=== PATIENT | female | born 1970 | race Caucasian/White ===

== ENCOUNTER 2019-05-12 15:33 | Outpatient (CLI) | payer OTHER, SELFPAY ==
--- NOTE | 2019-05-12 15:41 | MM_ITS ---
WS: [id number] SCREENING DIGITAL MAMMOGRAM WITH CAD HISTORY: SCREENING COMPARISON: 02/05/2018 and 12/14/2016 Bilateral CC and MLO views submitted. Computer aided detection analyzed. Breast composition: There are scattered areas of fibroglandular density. Irregular asymmetry in the i nferior RIGHT breast on the MLO projection. No corresponding finding on the CC projection. LEFT breas t is negative. RIGHT breast: Spot compression views (MLO). True ML. Ultrasound to follow if abnormality persists. MM/[place] [id number] IMPRESSION: BI-RADS: 0-Incomplete: Need additional imaging evaluation FOLLOW UP: Need Additional Imaging
== END 2019-05-12 15:34 | disposition home or self-care (01) ==
LOC: RADSHAW 15:39
PROVIDERS: Family Provider Family Medicine; PCP Family Medicine; Visit Provider Family Medicine
DX: Z12.31 Encounter for screening mammogram for malignant neoplasm of breast (principal)
CPT/HCPCS: 77067

== ENCOUNTER 2019-06-09 08:18 | Outpatient (CLI) | payer OTHER, SELFPAY ==
--- NOTE | 2019-06-09 08:37 | MM_ITS ---
WS: [id number] ADDITIONAL VIEWS RIGHT BREAST RIGHT breast ultrasound, limited HISTORY: RT BREAST ASYMMETRY COMPARISON: 05/12/2019, 02/05/2018, 12/14/2016 and 12/10/2015 Compression views right MLO projection. True ML also submitted. Ill-defined asymmetry persists in the inferior RIGHT breast at a middle depth. Margins are slightly l ess spiculated than on the prior examination. This is probably superimposed fibroglandular tissue. No t definitely seen on the CC projection. No distortion. RIGHT breast ultrasound. Ultrasound is directed to the inferior RIGHT breast. No suspicious masses or shadowing is identified. FOLLOW-UP: 6 Month Follow-up Recommend 6 month follow-up RIGHT mammogram and possible ultrasound. Favor the asymmetry is normal fi broglandular tissue in the RIGHT breast. MM/[place] [id number] IMPRESSION: BI-RADS: 3-Probably Benign
--- NOTE | 2019-06-09 09:01 | US_ITS ---
WS: [id number] ADDITIONAL VIEWS RIGHT BREAST RIGHT breast ultrasound, limited HISTORY: RT BREAST ASYMMETRY COMPARISON: 05/12/2019, 02/05/2018, 12/14/2016 and 12/10/2015 Compression views right MLO projection. True ML also submitted. Ill-defined asymmetry persists in the inferior RIGHT breast at a middle depth. Margins are slightly l ess spiculated than on the prior examination. This is probably superimposed fibroglandular tissue. No t definitely seen on the CC projection. No distortion. RIGHT breast ultrasound. Ultrasound is directed to the inferior RIGHT breast. No suspicious masses or shadowing is identified. FOLLOW-UP: 6 Month Follow-up Recommend 6 month follow-up RIGHT mammogram and possible ultrasound. Favor the asymmetry is normal fi broglandular tissue in the RIGHT breast. US/US breast RT limited* [id number] IMPRESSION: BI-RADS: 3-Probably Benign
== END 2019-06-09 08:19 | disposition home or self-care (01) ==
LOC: RADSHAW 08:19
PROVIDERS: Family Provider Family Medicine; PCP Family Medicine; Visit Provider Family Medicine
DX: Z00.00 Encounter for general adult medical examination without abnormal findings (principal); Z12.31 Encounter for screening mammogram for malignant neoplasm of breast
CPT/HCPCS: 76642; 77065

== ENCOUNTER 2019-12-16 10:32 | Outpatient (CLI) | payer OTHER, SELFPAY ==
--- NOTE | 2019-12-16 10:51 | MM_ITS ---
WS: [id number] RIGHT DIGITAL MAMMOGRAPHY WITH CAD CLINICAL INFORMATION: 6 MO F/U RT BREAST ASYMMETRY COMPARISON: June 09, 2019 TECHNIQUE: 5 views of the right breast were obtained. FINDINGS: The right breast is composed of heterogeneous fibroglandular density tissue, which can limit the dete ction of small underlying mass lesions. Again seen is the ill-defined asymmetry in the inferior right breast mid depth. This is unchanged from previous. Ultrasound is pending. ULTRASOUND BREAST RIGHT TECHNIQUE: Ultrasound right breast focused area of concern. CLINICAL INFORMATION: 6 MO F/U RT BREAST ASYMMETRY FINDINGS: Ultrasound right breast 4:00-700 position. No evidence of pathologic mass or lesion. Normal underlyin g dense breast tissue. No lesions to target for biopsy. Findings are benign. MM/[place] [id number] IMPRESSION: BI-RADS: 2-Benign FOLLOW UP: 1 Year Follow-up Recommend return to annual screening mammography.
== END 2019-12-16 10:33 | disposition home or self-care (01) ==
LOC: RADSHAW 10:33
PROVIDERS: PCP Family Medicine; Visit Provider Family Medicine
DX: N64.89 Other specified disorders of breast (principal)
CPT/HCPCS: 76642; 77065

== ENCOUNTER 2021-03-09 08:13 | Outpatient (CLI) | payer OTHER, SELFPAY ==
--- NOTE | 2021-03-09 08:23 | MM_ITS ---
WS: [id number] BILATERAL SCREENING DIGITAL MAMMOGRAM WITH CAD HISTORY: SCREENING COMPARISON: 05/12/2019, 02/05/2018 and 12/14/2016 Bilateral CC and MLO views submitted. Computer aided detection analyzed. Breast composition: There are scattered areas of fibroglandular density. No suspicious masses, microc alcifications or architectural distortion. MM/[place] [id number] IMPRESSION: BI-RADS: 1-Negative FOLLOW UP: 1 Year Follow-up
== END 2021-03-09 08:14 | disposition home or self-care (01) ==
LOC: RADSHAW 08:14
PROVIDERS: PCP Family Medicine; Visit Provider Family Medicine
DX: Z12.31 Encounter for screening mammogram for malignant neoplasm of breast (principal)
CPT/HCPCS: 77067

== ENCOUNTER → 2022-04-03 12:44 | Outpatient (BNVA) | payer OTHER, SELFPAY | PROVIDERS: PCP Family Medicine; Visit Provider Nurse Practitioner Family | DX: R50.9 Fever, unspecified (principal); B34.9 Viral infection, unspecified | CPT/HCPCS: 87804; 87880 ==

== ENCOUNTER 2022-05-09 14:46 | Outpatient (CLI) | payer OTHER, SELFPAY ==
--- NOTE | 2022-05-09 14:58 | MM_ITS ---
WS: [id number] BILATERAL 3D TOMOSYNTHESIS DIGITAL SCREENING MAMMOGRAPHY WITH CAD CLINICAL INFORMATION: SCREENING HISTORY: Screening mammogram. No current complaints. COMPARISON: March 09, 2021 TECHNIQUE: Bilateral CC and MLO views. FINDINGS: Scattered fibroglandular densities bilaterally. No suspicious focal mass, asymmetry, calcifications, or architectural distortion. No evidence of malignancy. MM/[place] [id number] IMPRESSION: BI-RADS: 1-Negative FOLLOW UP: 1 Year Follow-up Recommend return to annual screening mammography.
== END 2022-05-09 14:47 | disposition home or self-care (01) ==
PROVIDERS: PCP Family Medicine; Visit Provider Family Medicine
DX: Z12.31 Encounter for screening mammogram for malignant neoplasm of breast (principal)
CPT/HCPCS: 77063; 77067

== ENCOUNTER 2022-07-12 16:00 | Outpatient (CLI) | payer OTHER, SELFPAY | END 2022-07-12 16:01 | disposition home or self-care (01) | LOC: SLEEP 07-13 11:02 | PROVIDERS: PCP Family Medicine; Visit Provider Family Medicine | DX: G47.33 Obstructive sleep apnea (adult) (pediatric) (principal) | CPT/HCPCS: G0399 ==

== ENCOUNTER 2023-01-05 06:00 | Outpatient (RCR) | payer OTHER, SELFPAY | END 2023-02-03 23:59 | disposition home or self-care (01) | LOC: SPT 06:00 | PROVIDERS: Visit Provider Nurse Practitioner Family | DX: R32 Unspecified urinary incontinence (principal) | CPT/HCPCS: 97161; 97530 ==

== ENCOUNTER 2023-05-24 15:54 | Outpatient (CLI) | payer OTHER, SELFPAY ==
--- NOTE | 2023-05-24 16:00 | MM_ITS ---
WS: [id number] BILATERAL SCREENING DIGITAL TOMOSYNTHESIS MAMMOGRAM WITH CAD HISTORY: SCREENING COMPARISON: 05/09/2022, 03/09/2021 Bilateral CC and MLO views with tomosynthesis and synthetic mammography submitted. Computer aided det ection analyzed. Breast composition: The breasts are heterogeneously dense, which may obscure small masses. No suspici ous masses, microcalcifications or architectural distortion. IMPRESSION: MM/[place] [id number] BI-RADS: 1-Negative FOLLOW UP: 1 Year Follow-up
== END 2023-05-24 15:55 | disposition home or self-care (01) ==
LOC: MOBLMAM 15:55 → RAD 16:11
PROVIDERS: PCP Family Medicine; Visit Provider Family Medicine
DX: Z12.31 Encounter for screening mammogram for malignant neoplasm of breast (principal); R92.333 Mammographic heterogeneous density, bilateral breasts
CPT/HCPCS: 77063; 77067

== ENCOUNTER → 2023-11-28 12:11 | Outpatient (BNVA) | payer OTHER, SELFPAY | PROVIDERS: PCP Family Medicine; Visit Provider Specialist | DX: M25.561 Pain in right knee (principal) | CPT/HCPCS: 73560; 73565 ==

== ENCOUNTER → 2023-12-11 09:03 | Outpatient (BNVA) | payer OTHER, SELFPAY | PROVIDERS: PCP Family Medicine; Visit Provider Podiatrist Foot & Ankle Surgery | DX: S99.192A Other physeal fracture of left metatarsal, initial encounter for closed fracture; X50.9XXA Other and unspecified overexertion or strenuous movements or postures, initial encounter; M79.672 Pain in left foot | CPT/HCPCS: 73630 ==

== ENCOUNTER 2023-12-11 10:25 | Outpatient (CLI) | payer OTHER, SELFPAY | END 2023-12-11 10:26 | disposition home or self-care (01) | LOC: SPT 10:25 | PROVIDERS: PCP Family Medicine; Visit Provider Podiatrist Foot & Ankle Surgery | DX: Z46.89 Encounter for fitting and adjustment of other specified devices (principal); S99.199D Other physeal fracture of unspecified metatarsal, subsequent encounter for fracture with routine healing; X58.XXXD Exposure to other specified factors, subsequent encounter | CPT/HCPCS: 97760; L4361 ==

== ENCOUNTER → 2023-12-25 15:44 | Outpatient (BNVA) | payer OTHER, SELFPAY | PROVIDERS: PCP Family Medicine; Visit Provider Podiatrist Foot & Ankle Surgery | DX: S99.192D Other physeal fracture of left metatarsal, subsequent encounter for fracture with routine healing; X58.XXXD Exposure to other specified factors, subsequent encounter | CPT/HCPCS: 73630 ==

== ENCOUNTER → 2024-01-15 15:44 | Outpatient (BNVA) | payer OTHER, SELFPAY | PROVIDERS: PCP Family Medicine; Visit Provider Podiatrist Foot & Ankle Surgery | DX: S99.192D Other physeal fracture of left metatarsal, subsequent encounter for fracture with routine healing; X58.XXXD Exposure to other specified factors, subsequent encounter | CPT/HCPCS: 73630 ==

== ENCOUNTER → 2024-02-06 15:49 | Outpatient (BNVA) | payer OTHER, SELFPAY | PROVIDERS: PCP Family Medicine; Visit Provider Podiatrist Foot & Ankle Surgery | DX: S99.192G Other physeal fracture of left metatarsal, subsequent encounter for fracture with delayed healing; X58.XXXD Exposure to other specified factors, subsequent encounter | CPT/HCPCS: 73630 ==

== ENCOUNTER → 2024-02-25 16:03 | Outpatient (BNVA) | payer OTHER, SELFPAY | PROVIDERS: PCP Family Medicine; Visit Provider Podiatrist Foot & Ankle Surgery | DX: S99.192G Other physeal fracture of left metatarsal, subsequent encounter for fracture with delayed healing; X58.XXXD Exposure to other specified factors, subsequent encounter | CPT/HCPCS: 73630 ==

== ENCOUNTER → 2024-03-27 15:35 | Outpatient (BNVA) | payer OTHER, SELFPAY | PROVIDERS: PCP Family Medicine; Visit Provider Podiatrist Foot & Ankle Surgery | DX: S99.192G Other physeal fracture of left metatarsal, subsequent encounter for fracture with delayed healing; X58.XXXD Exposure to other specified factors, subsequent encounter | CPT/HCPCS: 73630 ==

== ENCOUNTER 2024-06-09 16:05 | Outpatient (CLI) | payer OTHER, SELFPAY ==
--- NOTE | 2024-06-09 16:12 | MM_ITS ---
WS: [id number] BILATERAL 3D TOMOSYNTHESIS DIGITAL SCREENING MAMMOGRAPHY WITH CAD CLINICAL INFORMATION: SCREEN HISTORY: Screening mammogram. No current complaints. COMPARISON: 2023 TECHNIQUE: Bilateral CC and MLO views. FINDINGS: The breasts are composed of heterogeneous fibroglandular density tissue, which can limit the detectio n of small underlying mass lesions. No suspicious mass, asymmetry, calcifications, or architectural d istortion. No evidence of malignancy. MM/MM [facility] tomosynthesis [id number] IMPRESSION: DENSITY: The breasts are heterogeneously dense, which may obscure small masses. BI-RADS: 1 - Negative FOLLOW UP: 1 Year Follow-up Recommend return to annual screening mammography.
== END 2024-06-09 16:06 | disposition home or self-care (01) ==
PROVIDERS: PCP Family Medicine; Visit Provider Family Medicine
DX: Z12.31 Encounter for screening mammogram for malignant neoplasm of breast (principal); R92.333 Mammographic heterogeneous density, bilateral breasts; R92.323 Mammographic fibroglandular density, bilateral breasts
CPT/HCPCS: 77063; 77067